=== PATIENT | female | born 1955 | race Caucasian/White ===

== ENCOUNTER 2022-01-27 13:47 | Inpatient (IN) | payer MEDICARE, SELFPAY ==
[2022-01-27 14:17] LABS: #Lymphocytes 1.6 thou/uL (1.20-3.40); #Monocytes 0.6 thou/uL (0.11-0.59); #Neutrophils 3.2 thou/uL (1.40-6.50); %Basophils 0.5 % (0.0-1.0); %Eosinophils 0.1 % (0.0-10.0); %Lymphocytes 29.2 % (21.0-51.0); %Monocytes 10.6 % (0.0-10.0); %Neutrophils 59.6 % (42.0-75.0); Hemoglobin 16.9 g/dL (12.0-16.0); Mean Corpuscular HGB CONC 31.3 g/dL (32.0-36.0); Mean Corpuscular Hemoglobin 30.2 pg (27.0-31.0); Mean Corpuscular Volume 96.4 fl (78.0-98.0); Mean Platelet Volume 9.1 fL (7.4-10.4); Platelet Count 129 10x3/uL (130-400); RBC Distribution Width 13.8 % (11.5-14.5); Red Blood Cell (RBC) Count 5.61 mill/uL (4.20-5.40); White Blood Cell (WBC) Count 5.4 10x3/uL (4.8-10.8)
[2022-01-27 14:27] LABS: INR-International Normal Ratio 1.1; PTT 31.8 sec (22.9-36.1)
[2022-01-27 14:41] LABS: ALT (SGPT) 87 U/L (8-55); AST (SGOT) 167 U/L (5-34); Albumin 3.4 g/dL (3.4-4.8); Alkaline Phosphatase 120 U/L (40-110); Anion Gap 20 mmol/L (10-20); BUN (Urea Nitrogen) 54 mg/dL (9.8-20.1); Bilirubin, Total 1.9 mg/dL (0.2-1.2); Calc. Creatinine Clearance 0 mL/min (70-130); Calcium 8.7 mg/dL (7.8-10.44); Carbon Dioxide 19 mmol/L (23-31); Chloride 98 mmol/L (98-107); Estimated GFR 31; Globulin 3.4 g/dL (2.4-3.5); Glucose 148 mg/dL (80-115); Protein, Total 6.8 g/dL (5.8-8.1); Sodium 132 mmol/L (136-145)
[2022-01-27] MEDS ORDERED: Metoprolol Tartrate 5 MG/5 ML VIAL ONE (15:48)
[2022-01-27] MEDS ORDERED: Metoprolol Tartrate 5 MG/5 ML VIAL IVP SCH (18:10)
[2022-01-27] MEDS ORDERED: Furosemide 20 MG/2 ML VIAL SLOW IVP SCH (18:15)
[2022-01-27] MEDS ORDERED: Acetaminophen 325 MG TAB PO PRN (18:23)
[2022-01-27] MEDS ORDERED: Ondansetron PF 4 MG/2 ML Vial IVP PRN (19:15)
[2022-01-27] MEDS ORDERED: Sodium Chloride 0.9% 1,000 ML IV SCH (19:15)
[2022-01-27] MEDS ORDERED: Ondansetron ODT 4 MG TAB SL PRN (19:15)
[2022-01-27] MEDS: Heparin 5,000 UNITS/ML VIAL SC SCH (21:33)
[2022-01-28] MEDS ORDERED: Metoprolol Tartrate 5 MG/5 ML VIAL IVP SCH (03:59)
[2022-01-28 05:24] LABS: Anion Gap 17 mmol/L (10-20); BUN (Urea Nitrogen) 57 mg/dL (9.8-20.1); Calc. Creatinine Clearance 45 mL/min (70-130); Calcium 8.4 mg/dL (7.8-10.44); Carbon Dioxide 19 mmol/L (23-31); Chloride 100 mmol/L (98-107); Estimated GFR 28; Glucose 133 mg/dL (80-115); Potassium 5.2 mmol/L (3.5-5.1); Sodium 131 mmol/L (136-145)
[2022-01-28 05:54] LABS: Band 3 % (5-11); Hemoglobin 15.6 g/dL (12.0-16.0); Lymphocytes 15 % (21-51); MDiff Complete? YES; Mean Corpuscular HGB CONC 30.2 g/dL (32.0-36.0); Mean Corpuscular Hemoglobin 28.7 pg (27.0-31.0); Mean Corpuscular Volume 95.2 fl (78.0-98.0); Mean Platelet Volume 9.7 fL (7.4-10.4); Monocytes 12 % (0-10); Neutrophil 70 % (42-75); Platelet Count 118 10x3/uL (130-400); Platelet Morphology Comment Appears Decreased; RBC Distribution Width 13.9 % (11.5-14.5); RBC Morphology Normal; Red Blood Cell (RBC) Count 5.44 mill/uL (4.20-5.40); White Blood Cell (WBC) Count 6.3 10x3/uL (4.8-10.8)
[2022-01-28] MEDS: Furosemide 20 MG/2 ML VIAL SLOW IVP SCH ×2 (06:08→13:41)
[2022-01-28] MEDS: Heparin 5,000 UNITS/ML VIAL SC SCH (09:42)
[2022-01-28] MEDS: Aspirin Chewable 81 MG TAB PO SCH (09:42)
[2022-01-28] MEDS ORDERED: Diltiazem 125 MG, Admixture Fee 1 EACH in Sodium Chloride 0.9% 100 ML IVPB SCH (11:45)
[2022-01-28] MEDS ORDERED: DOBUTamine 500 mg/250 ml 250 ML IVPB SCH (12:15)
[2022-01-28] MEDS: Amiodarone 450 MG in Dextrose 5% in Water 250 ML IVPB SCH ×2 (12:52→22:38)
[2022-01-28] MEDS ORDERED: Enoxaparin Sodium 100 MG/ML SYRINGE SC SCH (13:00)
[2022-01-28 13:20] LABS: ALT (SGPT) 140 U/L (8-55); AST (SGOT) 334 U/L (5-34); Albumin 3.1 g/dL (3.4-4.8); Alkaline Phosphatase 138 U/L (40-110); Bilirubin, Direct 1.3 mg/dL (0.1-0.3); Protein, Total 6.1 g/dL (5.8-8.1)
[2022-01-29 05:06] LABS: Hemoglobin 15.7 g/dL (12.0-16.0); Mean Corpuscular HGB CONC 31.1 g/dL (32.0-36.0); Mean Corpuscular Hemoglobin 29.2 pg (27.0-31.0); Mean Corpuscular Volume 94.2 fl (78.0-98.0); Mean Platelet Volume 10.3 fL (7.4-10.4); Platelet Count 102 10x3/uL (130-400); Red Blood Cell (RBC) Count 5.38 mill/uL (4.20-5.40); White Blood Cell (WBC) Count 6.6 10x3/uL (4.8-10.8)
[2022-01-29 05:07] LABS: #Lymphocytes 1.4 thou/uL (1.20-3.40); #Monocytes 0.5 thou/uL (0.11-0.59); #Neutrophils 5.1 thou/uL (1.40-6.50); %Lymphocytes 20.5 % (21.0-51.0); %Monocytes 7.3 % (0.0-10.0); %Neutrophils 72.1 % (42.0-75.0)
[2022-01-29 05:22] LABS: ALT (SGPT) 240 U/L (8-55); AST (SGOT) 583 U/L (5-34); Albumin 2.8 g/dL (3.4-4.8); Alkaline Phosphatase 128 U/L (40-110); Anion Gap 18 mmol/L (10-20); BUN (Urea Nitrogen) 64 mg/dL (9.8-20.1); Bilirubin, Total 1.7 mg/dL (0.2-1.2); Calc. Creatinine Clearance 39 mL/min (70-130); Calcium 8.1 mg/dL (7.8-10.44); Carbon Dioxide 18 mmol/L (23-31); Chloride 100 mmol/L (98-107); Estimated GFR 24; Globulin 2.8 g/dL (2.4-3.5); Glucose 182 mg/dL (80-115); Potassium 5.2 mmol/L (3.5-5.1); Protein, Total 5.6 g/dL (5.8-8.1); Sodium 131 mmol/L (136-145)
[2022-01-29] MEDS: Furosemide 20 MG/2 ML VIAL SLOW IVP SCH ×2 (06:21→14:54)
[2022-01-29] MEDS: Aspirin Chewable 81 MG TAB PO SCH (10:22)
[2022-01-29] MEDS: Enoxaparin Sodium 100 MG/ML SYRINGE SC SCH (10:36)
[2022-01-29 12:18] LABS: Free T4 (Free Thyroxine) 1.19 ng/dL (0.70-1.48)
[2022-01-29] MEDS: Amiodarone 450 MG in Dextrose 5% in Water 250 ML IVPB SCH (13:30)
[2022-01-29] MEDS ORDERED: predniSONE 50 MG TAB ONE (18:12)
[2022-01-30] MEDS: DOBUTamine 500 mg/250 ml 250 ML IVPB SCH ×2 (00:35→18:08)
[2022-01-30] MEDS: Amiodarone 450 MG in Dextrose 5% in Water 250 ML IVPB SCH ×2 (04:51→17:44)
[2022-01-30 05:01] LABS: #Lymphocytes 0.7 thou/uL (1.20-3.40); #Monocytes 0.3 thou/uL (0.11-0.59); #Neutrophils 8.1 thou/uL (1.40-6.50); %Basophils 0.2 % (0.0-1.0); %Eosinophils 0.1 % (0.0-10.0); %Monocytes 2.9 % (0.0-10.0); %Neutrophils 88.9 % (42.0-75.0); Hemoglobin 16.3 g/dL (12.0-16.0); Mean Corpuscular HGB CONC 30.7 g/dL (32.0-36.0); Mean Corpuscular Hemoglobin 29.3 pg (27.0-31.0); Mean Corpuscular Volume 95.3 fl (78.0-98.0); Mean Platelet Volume 10.2 fL (7.4-10.4); Platelet Count 112 10x3/uL (130-400); RBC Distribution Width 14.3 % (11.5-14.5); Red Blood Cell (RBC) Count 5.58 mill/uL (4.20-5.40); White Blood Cell (WBC) Count 9.1 10x3/uL (4.8-10.8)
[2022-01-30 05:32] LABS: ALT (SGPT) 265 U/L (8-55); AST (SGOT) 456 U/L (5-34); Alkaline Phosphatase 145 U/L (40-110); Anion Gap 18 mmol/L (10-20); BUN (Urea Nitrogen) 70 mg/dL (9.8-20.1); Bilirubin, Total 1.9 mg/dL (0.2-1.2); Calc. Creatinine Clearance 39 mL/min (70-130); Calcium 8.3 mg/dL (7.8-10.44); Carbon Dioxide 17 mmol/L (23-31); Chloride 98 mmol/L (98-107); Estimated GFR 24; Globulin 3.2 g/dL (2.4-3.5); Glucose 265 mg/dL (80-115); Magnesium 2.2 mg/dL (1.6-2.6); Phosphorus 5.1 mg/dL (2.3-4.7); Potassium 5.3 mmol/L (3.5-5.1); Protein, Total 6.2 g/dL (5.8-8.1); Sodium 128 mmol/L (136-145)
[2022-01-30] MEDS: Furosemide 20 MG/2 ML VIAL SLOW IVP SCH ×2 (05:41→14:42)
[2022-01-30] MEDS ORDERED: Empagliflozin 10 MG TAB PO SCH (09:00)
[2022-01-30] MEDS ORDERED: FLU VACC QS2022-23(65YR UP)/PF 240 MCG/0.7 ML SYRINGE IM ONE (09:00)
[2022-01-30] MEDS: Aspirin Chewable 81 MG TAB PO SCH (10:00)
[2022-01-30] MEDS: Enoxaparin Sodium 100 MG/ML SYRINGE SC SCH (10:00)
[2022-01-30] MEDS: Doxycycline 100 MG in Sodium Chloride 0.9% 100 ML IVPB SCH ×2 (10:10→22:00)
[2022-01-30 14:37] LABS: HBCM Index 0.05 S/CO (0-0.79); HBSAg Index 0.31 S/CO (0-0.99); Hep A IgM AB Non-Reactive (NonReactive); Hep A IgM S/CO 0.11 S/CO (0-0.79); Hep B Surf Ag Non-Reactive S/CO (NonReactive); Hep C IgG Ab Non-Reactive (NonReactive); Hep C Index 0.21 S/CO (0-0.79); Hepatitis B Core IgM Abs Non-Reactive (NonReactive)
[2022-01-30] MEDS ORDERED: Doxycycline 100 MG in Syringe 0 ML IVPB SCH (21:00)
[2022-01-31] MEDS: Furosemide 20 MG/2 ML VIAL SLOW IVP SCH ×2 (05:57→14:49)
[2022-01-31 07:50] LABS: ALT (SGPT) 219 U/L (8-55); AST (SGOT) 246 U/L (5-34); Alkaline Phosphatase 124 U/L (40-110); Anion Gap 16 mmol/L (10-20); BUN (Urea Nitrogen) 72 mg/dL (9.8-20.1); Calc. Creatinine Clearance 44 mL/min (70-130); Calcium 8.5 mg/dL (7.8-10.44); Carbon Dioxide 20 mmol/L (23-31); Chloride 99 mmol/L (98-107); Estimated GFR 27; Globulin 3.2 g/dL (2.4-3.5); Glucose 307 mg/dL (80-115); Potassium 4.9 mmol/L (3.5-5.1); Protein, Total 6.2 g/dL (5.8-8.1); Sodium 130 mmol/L (136-145)
[2022-01-31 08:05] LABS: #Monocytes 0.8 thou/uL (0.11-0.59); #Neutrophils 8.9 thou/uL (1.40-6.50); %Basophils 0.2 % (0.0-1.0); %Eosinophils 0.1 % (0.0-10.0); %Lymphocytes 9.1 % (21.0-51.0); %Monocytes 7.5 % (0.0-10.0); %Neutrophils 83.2 % (42.0-75.0); Hemoglobin 16.1 g/dL (12.0-16.0); Mean Corpuscular HGB CONC 30.3 g/dL (32.0-36.0); Mean Corpuscular Hemoglobin 29.2 pg (27.0-31.0); Mean Corpuscular Volume 96.2 fl (78.0-98.0); Mean Platelet Volume 9.9 fL (7.4-10.4); Platelet Count 121 10x3/uL (130-400); RBC Distribution Width 14.3 % (11.5-14.5); Red Blood Cell (RBC) Count 5.51 mill/uL (4.20-5.40); White Blood Cell (WBC) Count 10.7 10x3/uL (4.8-10.8)
[2022-01-31] MEDS: Aspirin Chewable 81 MG TAB PO SCH (10:18)
[2022-01-31] MEDS: Doxycycline 100 MG in Sodium Chloride 0.9% 100 ML IVPB SCH ×2 (10:18→22:04)
[2022-01-31] MEDS: Enoxaparin Sodium 100 MG/ML SYRINGE SC SCH (10:18)
[2022-02-01 04:43] LABS: #Lymphocytes 1.2 thou/uL (1.20-3.40); #Monocytes 0.7 thou/uL (0.11-0.59); #Neutrophils 7.3 thou/uL (1.40-6.50); %Basophils 0.1 % (0.0-1.0); %Eosinophils 0.1 % (0.0-10.0); %Lymphocytes 13.1 % (21.0-51.0); %Monocytes 7.9 % (0.0-10.0); %Neutrophils 78.9 % (42.0-75.0); Hemoglobin 15.3 g/dL (12.0-16.0); Mean Corpuscular HGB CONC 30.7 g/dL (32.0-36.0); Mean Corpuscular Hemoglobin 28.9 pg (27.0-31.0); Mean Corpuscular Volume 94.1 fl (78.0-98.0); Mean Platelet Volume 10.2 fL (7.4-10.4); Platelet Count 116 10x3/uL (130-400); RBC Distribution Width 14.3 % (11.5-14.5); Red Blood Cell (RBC) Count 5.29 mill/uL (4.20-5.40); White Blood Cell (WBC) Count 9.3 10x3/uL (4.8-10.8)
[2022-02-01 05:08] LABS: ALT (SGPT) 185 U/L (8-55); AST (SGOT) 150 U/L (5-34); Albumin 3.1 g/dL (3.4-4.8); Alkaline Phosphatase 121 U/L (40-110); Anion Gap 15 mmol/L (10-20); BUN (Urea Nitrogen) 66 mg/dL (9.8-20.1); Calc. Creatinine Clearance 47 mL/min (70-130); Calcium 8.6 mg/dL (7.8-10.44); Carbon Dioxide 23 mmol/L (23-31); Chloride 99 mmol/L (98-107); Estimated GFR 29; Globulin 3.2 g/dL (2.4-3.5); Glucose 269 mg/dL (80-115); Magnesium 2.2 mg/dL (1.6-2.6); Phosphorus 3.7 mg/dL (2.3-4.7); Potassium 4.7 mmol/L (3.5-5.1); Protein, Total 6.3 g/dL (5.8-8.1); Sodium 132 mmol/L (136-145)
[2022-02-01] MEDS: Furosemide 20 MG/2 ML VIAL SLOW IVP SCH ×2 (05:51→15:02)
[2022-02-01] MEDS: DOBUTamine 500 mg/250 ml 250 ML IVPB SCH ×2 (05:51→20:53)
[2022-02-01] MEDS: Amiodarone 450 MG in Dextrose 5% in Water 250 ML IVPB SCH ×2 (05:51→20:06)
[2022-02-01] MEDS: Doxycycline 100 MG in Sodium Chloride 0.9% 100 ML IVPB SCH ×2 (09:41→20:40)
[2022-02-01] MEDS: Enoxaparin Sodium 100 MG/ML SYRINGE SC SCH (09:41)
[2022-02-01] MEDS: Aspirin Chewable 81 MG TAB PO SCH (09:41)
[2022-02-01 14:18] LABS: Bacteria/HPF 4+ HPF (None Seen); Bilirubin Negative (Negative); Blood, Urine 1+ (Negative); CAUTI Indications for Culture Dysuria,urgency,freq; Clarity Turbid (Clear); Glucose, Urine (Dipstick) Normal (Negative); Ketone, Urine Negative (Negative); Leukocyte 250 Leu/uL (Negative); Nitrite Negative (Negative); Protein, Urine (Dipstick) 20 mg/dL (Neg-Trace); Specific Gravity, Urine 1.016 (1.002-1.036); Squamous Epithelial 0-3 HPF (0-3)
[2022-02-01 14:22] LABS: Urine Culture Reflex Yes Yes
[2022-02-01] MEDS: cefTRIAXone\\ROCEPHIN 1 GM in Sodium Chloride 0.9% 100 ML IVPB SCH (16:02)
[2022-02-02 04:54] LABS: #Lymphocytes 1.2 thou/uL (1.20-3.40); #Monocytes 0.9 thou/uL (0.11-0.59); %Basophils 0.1 % (0.0-1.0); %Lymphocytes 12.8 % (21.0-51.0); %Monocytes 9.8 % (0.0-10.0); %Neutrophils 77.3 % (42.0-75.0); Hemoglobin 16.3 g/dL (12.0-16.0); Mean Corpuscular HGB CONC 31.8 g/dL (32.0-36.0); Mean Corpuscular Hemoglobin 30.2 pg (27.0-31.0); Mean Corpuscular Volume 94.9 fl (78.0-98.0); Mean Platelet Volume 10.3 fL (7.4-10.4); Platelet Count 112 10x3/uL (130-400); RBC Distribution Width 14.2 % (11.5-14.5)
[2022-02-02 05:00] LABS: ALT (SGPT) 143 U/L (8-55); AST (SGOT) 85 U/L (5-34); Albumin 2.9 g/dL (3.4-4.8); Alkaline Phosphatase 115 U/L (40-110); Anion Gap 19 mmol/L (10-20); BUN (Urea Nitrogen) 64 mg/dL (9.8-20.1); Calc. Creatinine Clearance 58 mL/min (70-130); Calcium 8.6 mg/dL (7.8-10.44); Carbon Dioxide 16 mmol/L (23-31); Chloride 102 mmol/L (98-107); Estimated GFR 38; Globulin 3.6 g/dL (2.4-3.5); Glucose 255 mg/dL (80-115); Potassium 4.9 mmol/L (3.5-5.1); Protein, Total 6.5 g/dL (5.8-8.1); Sodium 132 mmol/L (136-145)
[2022-02-02] MEDS: Furosemide 20 MG/2 ML VIAL SLOW IVP SCH ×2 (05:29→14:29)
[2022-02-02] MEDS: Aspirin Chewable 81 MG TAB PO SCH (08:22)
[2022-02-02] MEDS: Enoxaparin Sodium 100 MG/ML SYRINGE SC SCH (08:22)
[2022-02-02] MEDS: cefTRIAXone\\ROCEPHIN 1 GM in Sodium Chloride 0.9% 100 ML IVPB SCH (08:56)
[2022-02-02] MEDS: Doxycycline 100 MG in Sodium Chloride 0.9% 100 ML IVPB SCH (09:34)
[2022-02-02] MEDS: Amiodarone 450 MG in Dextrose 5% in Water 250 ML IVPB SCH (11:27)
[2022-02-02] MEDS: DOBUTamine 500 mg/250 ml 250 ML IVPB SCH ×2 (11:28→20:00)
[2022-02-02] MEDS: Propofol 1,000 MG/100 ML VIAL IV PRN (19:30)
[2022-02-02 19:47] LABS: Actual Bicarbonate (HCO3a) 14.5 mEq/L (22-28); Base Excess (BEa) -13.4 mEq/L (-2.0 to +3.0); CO2 Tension 40.6 mmHg (35.0-45.0); Calcium, Ionized (arterial) 1.17 mmol/L (1.12-1.30); Carboxyhemoglobin (COHb) 0.8 gm% (0.0-3.0); Hemoglobin (Hb) 17.2 g/dL (12.0-16.0); O2 Tension (PaO2), arterial 56.4 mmHg (> 80.0); Potassium - ABG Lab 5.15 mmol/L (3.70-5.30); pH, Arterial 7.17 (7.35-7.45)
[2022-02-02 19:48] LABS: Puncture Site RBR
[2022-02-02] MEDS ORDERED: Midazolam HCl 2 mg/2 ml Vial ONE (19:55)
[2022-02-02] MEDS ORDERED: NOREPINEPHRINE 8 MG/250 ML-D5W 250 ML ONE (20:06)
[2022-02-02] MEDS ORDERED: NOREPINEPHRINE 8 MG/250 ML-D5W 250 ML IVPB PRN (20:11)
[2022-02-02] MEDS ORDERED: Piperacillin/Tazobactam 3.375 GM in Sodium Chloride 0.9% 100 ML IVPB SCH ×2 (20:15→23:59)
[2022-02-02] MEDS ORDERED: Ventilator Sedation Protocol 1 EACH FS SCH (20:15)
[2022-02-02] MEDS ORDERED: Sodium Bicarb 50 MEQ/50 ML VIAL IVP SCH (20:15)
[2022-02-02 20:27] LABS: Mean Corpuscular HGB CONC 29.9 g/dL (32.0-36.0); Mean Corpuscular Hemoglobin 28.9 pg (27.0-31.0); Mean Corpuscular Volume 96.7 fl (78.0-98.0); Mean Platelet Volume 10.6 fL (7.4-10.4); Platelet Count 106 10x3/uL (130-400); RBC Distribution Width 14.6 % (11.5-14.5); Red Blood Cell (RBC) Count 5.54 mill/uL (4.20-5.40)
[2022-02-02] MEDS ORDERED: Midazolam HCl 2 mg/2 ml Vial SLOW IVP PRN (20:29)
[2022-02-02] MEDS ORDERED: Morphine 4 MG/ML VIAL SLOW IVP PRN (20:30)
[2022-02-02] MEDS ORDERED: Fentanyl CADD 100 ML IV SCH (20:30)
[2022-02-02] MEDS ORDERED: Fentanyl BOLUS 250 ML IVPB PRN (20:30)
[2022-02-02] MEDS ORDERED: DISCONTINUE PREVIOUS NARCOTIC PAIN MEDICATIONS AND BENZODIAZEPINES FS SCH (20:30)
[2022-02-02] MEDS ORDERED: Propofol BOLUS 1,000 MG/100 ML VIAL IV PRN (20:30)
[2022-02-02 20:41] LABS: INR-International Normal Ratio 1.5; PTT 39.9 sec (22.9-36.1); Prothrombin Time 18.9 sec (12.0-14.7)
[2022-02-02 20:41] LABS: Anion Gap 21 mmol/L (10-20); BUN (Urea Nitrogen) 57 mg/dL (9.8-20.1); Calc. Creatinine Clearance 55 mL/min (70-130); Carbon Dioxide 17 mmol/L (23-31); Chloride 102 mmol/L (98-107); Potassium 5.2 mmol/L (3.5-5.1); Sodium 135 mmol/L (136-145)
[2022-02-02 20:42] LABS: ALT (SGPT) 119 U/L (8-55); AST (SGOT) 111 U/L (5-34); Albumin 2.4 g/dL (3.4-4.8); Alkaline Phosphatase 110 U/L (40-110); Bilirubin, Total 1.8 mg/dL (0.2-1.2); Calcium 7.9 mg/dL (7.8-10.44); Estimated GFR 35; Globulin 3.2 g/dL (2.4-3.5); Glucose 296 mg/dL (80-115); Magnesium 2.2 mg/dL (1.6-2.6); Protein, Total 5.6 g/dL (5.8-8.1)
[2022-02-02 20:43] LABS: Lactic Acid 8.2 mmol/L (0.5-2.2)
[2022-02-02 20:44] LABS: Troponin I 0.028 ng/mL (< 0.028)
[2022-02-02] MEDS ORDERED: Digoxin 0.5 MG/2 ML AMP SLOW IVP SCH (20:45)
[2022-02-02 20:56] LABS: Band 4 % (5-11); Lymphocytes 19 % (21-51); MDiff Complete? YES; Monocytes 1 % (0-10); Neutrophil 76 % (42-75); Nucleated RBC 7 % (0); Platelet Morphology Comment Appears Decreased; White Blood Cell (WBC) Count 9.7 10x3/uL (4.8-10.8)
[2022-02-02] MEDS ORDERED: Enoxaparin Sodium 100 MG/ML SYRINGE SC SCH (21:00)
[2022-02-02 23:17] LABS: Lactic Acid 6.3 mmol/L (0.5-2.2)
[2022-02-03] MEDS: Propofol 1,000 MG/100 ML VIAL IV PRN ×2 (02:33→13:10)
[2022-02-03] MEDS: Piperacillin/Tazobactam 3.375 GM in Sodium Chloride 0.9% 100 ML IVPB SCH ×3 (02:33→17:24)
[2022-02-03 03:58] LABS: Band 8 % (5-11); Lymphocytes 4 % (21-51); MDiff Complete? YES; Mean Corpuscular HGB CONC 30.6 g/dL (32.0-36.0); Mean Corpuscular Hemoglobin 28.8 pg (27.0-31.0); Mean Platelet Volume 10.3 fL (7.4-10.4); Monocytes 3 % (0-10); Neutrophil 85 % (42-75); Nucleated RBC 2 % (0); Platelet Count 104 10x3/uL (130-400); Platelet Morphology Comment Appears Decreased; RBC Distribution Width 14.4 % (11.5-14.5); White Blood Cell (WBC) Count 13.4 10x3/uL (4.8-10.8)
[2022-02-03 04:03] LABS: ALT (SGPT) 102 U/L (8-55); AST (SGOT) 90 U/L (5-34); Albumin 2.2 g/dL (3.4-4.8); Alkaline Phosphatase 98 U/L (40-110); Anion Gap 16 mmol/L (10-20); BUN (Urea Nitrogen) 62 mg/dL (9.8-20.1); Bilirubin, Total 2.7 mg/dL (0.2-1.2); Calc. Creatinine Clearance 52 mL/min (70-130); Calcium 7.9 mg/dL (7.8-10.44); Carbon Dioxide 21 mmol/L (23-31); Chloride 101 mmol/L (98-107); Estimated GFR 33; Globulin 2.8 g/dL (2.4-3.5); Glucose 280 mg/dL (80-115); Magnesium 1.9 mg/dL (1.6-2.6); Phosphorus 3.2 mg/dL (2.3-4.7); Potassium 4.4 mmol/L (3.5-5.1); Sodium 134 mmol/L (136-145)
[2022-02-03 04:50] LABS: Lactic Acid 3.4 mmol/L (0.5-2.2)
[2022-02-03] MEDS ORDERED: HumaLOG 300 UNITS/3 ML VIAL SC PRN (05:55)
[2022-02-03] MEDS ORDERED: Dextrose 50% Abboject 50 ML SYRINGE SLOW IVP PRN (05:55)
[2022-02-03] MEDS ORDERED: Dextrose 5% in Water 1,000 ML IV PRN (05:55)
[2022-02-03 06:20] LABS: Hemoglobin A1c 7.7 % (4.0-6.0)
[2022-02-03] MEDS: Furosemide 20 MG/2 ML VIAL SLOW IVP SCH ×2 (06:24→14:24)
[2022-02-03] MEDS: HumaLOG 300 UNITS/3 ML VIAL SC PRN ×3 (06:25→17:17)
[2022-02-03 07:48] LABS: Actual Bicarbonate (HCO3a) 20.3 mEq/L (22-28); Base Excess (BEa) 0.8 mEq/L (-2.0 to +3.0); Carboxyhemoglobin (COHb) 0.7 gm% (0.0-3.0); Hemoglobin (Hb) 15.9 g/dL (12.0-16.0); O2 Tension (PaO2), arterial 157.3 mmHg (> 80.0); Potassium - ABG Lab 3.97 mmol/L (3.70-5.30); pH, Arterial 7.58 (7.35-7.45)
[2022-02-03 07:50] LABS: Puncture Site RRA
[2022-02-03 08:43] LABS: Anion Gap 14 mmol/L (10-20); BUN (Urea Nitrogen) 60 mg/dL (9.8-20.1); Calc. Creatinine Clearance 53 mL/min (70-130); Calcium 7.9 mg/dL (7.8-10.44); Carbon Dioxide 23 mmol/L (23-31); Chloride 101 mmol/L (98-107); Estimated GFR 33; Glucose 262 mg/dL (80-115); Potassium 4.1 mmol/L (3.5-5.1); Sodium 134 mmol/L (136-145)
[2022-02-03 09:02] LABS: HIV (1/2) Antibody/Antigen Non-Reactive (NonReactive); HIV 1/2 INDEX 0.16 S/CO (<1.00)
[2022-02-03] MEDS: Pantoprazole 40 MG VIAL IVP SCH (09:14)
[2022-02-03] MEDS: Aspirin Chewable 81 MG TAB PO SCH (09:14)
[2022-02-03] MEDS: NPH, Human Insulin Isophane 300 UNIT/3 ML VIAL SC SCH ×2 (09:26→22:35)
[2022-02-03 11:14] VITALS: BMI 35.2
[2022-02-03 13:09] LABS: Syphilis Antibody Nonreactive (Nonreactive); Syphilis Antibody Index 0.06 S/CO (<1.00 Non-Reactive)
[2022-02-03] MEDS: DOBUTamine 500 mg/250 ml 250 ML IVPB SCH (13:10)
[2022-02-03] MEDS ORDERED: EPINEPHrine 1 MG/10 ML Abboject SYRINGE ONE (19:10)
[2022-02-03] MEDS ORDERED: NPH, Human Insulin Isophane 300 UNIT/3 ML VIAL SC SCH (22:15)
[2022-02-04] MEDS: Amiodarone 450 MG in Dextrose 5% in Water 250 ML IVPB SCH ×2 (01:14→18:28)
[2022-02-04] MEDS: Propofol 1,000 MG/100 ML VIAL IV PRN ×3 (01:14→18:20)
[2022-02-04] MEDS: Piperacillin/Tazobactam 3.375 GM in Sodium Chloride 0.9% 100 ML IVPB SCH ×3 (02:25→18:19)
[2022-02-04 04:54] LABS: #Lymphocytes 1.1 thou/uL (1.20-3.40); #Monocytes 0.6 thou/uL (0.11-0.59); #Neutrophils 8.3 thou/uL (1.40-6.50); %Basophils 0.2 % (0.0-1.0); %Eosinophils 0.3 % (0.0-10.0); %Lymphocytes 11.1 % (21.0-51.0); %Monocytes 5.7 % (0.0-10.0); %Neutrophils 82.7 % (42.0-75.0); Hemoglobin 14.1 g/dL (12.0-16.0); Mean Corpuscular HGB CONC 30.6 g/dL (32.0-36.0); Mean Corpuscular Hemoglobin 28.9 pg (27.0-31.0); Mean Corpuscular Volume 94.3 fl (78.0-98.0); Mean Platelet Volume 10.4 fL (7.4-10.4); Platelet Count 100 10x3/uL (130-400); RBC Distribution Width 14.1 % (11.5-14.5); Red Blood Cell (RBC) Count 4.87 mill/uL (4.20-5.40)
[2022-02-04 05:11] LABS: Anion Gap 13 mmol/L (10-20); BUN (Urea Nitrogen) 57 mg/dL (9.8-20.1); Calc. Creatinine Clearance 60 mL/min (70-130); Calcium 7.8 mg/dL (7.8-10.44); Carbon Dioxide 26 mmol/L (23-31); Chloride 101 mmol/L (98-107); Estimated GFR 39; Glucose 126 mg/dL (80-115); Potassium 3.7 mmol/L (3.5-5.1); Sodium 136 mmol/L (136-145)
[2022-02-04] MEDS: Furosemide 20 MG/2 ML VIAL SLOW IVP SCH ×2 (06:11→15:42)
[2022-02-04] MEDS: DOBUTamine 500 mg/250 ml 250 ML IVPB SCH (06:11)
[2022-02-04 07:56] LABS: Actual Bicarbonate (HCO3a) 23.8 mEq/L (22-28); Base Excess (BEa) 0.8 mEq/L (-2.0 to +3.0); CO2 Tension 33.6 mmHg (35.0-45.0); Calcium, Ionized (arterial) 1.12 mmol/L (1.12-1.30); Hemoglobin (Hb) 15.1 g/dL (12.0-16.0); O2 Tension (PaO2), arterial 120.9 mmHg (> 80.0); Potassium - ABG Lab 3.84 mmol/L (3.70-5.30); pH, Arterial 7.47 (7.35-7.45)
[2022-02-04 07:58] LABS: Puncture Site RRA
[2022-02-04] MEDS: Aspirin Chewable 81 MG TAB PO SCH (11:07)
[2022-02-04] MEDS: Metolazone 5 MG TAB PER TUBE SCH (11:07)
[2022-02-04] MEDS: Pantoprazole 40 MG VIAL IVP SCH (11:07)
[2022-02-04] MEDS: NPH, Human Insulin Isophane 300 UNIT/3 ML VIAL SC SCH ×2 (11:52→21:27)
[2022-02-05] MEDS: DOBUTamine 500 mg/250 ml 250 ML IVPB SCH ×2 (00:11→17:32)
[2022-02-05] MEDS: Propofol 1,000 MG/100 ML VIAL IV PRN ×3 (00:11→13:10)
[2022-02-05] MEDS: Piperacillin/Tazobactam 3.375 GM in Sodium Chloride 0.9% 100 ML IVPB SCH ×3 (02:16→17:32)
[2022-02-05 05:24] LABS: #Eosinphils 0.1 thou/uL (0.0-0.7); #Lymphocytes 1.1 thou/uL (1.20-3.40); #Monocytes 0.7 thou/uL (0.11-0.59); #Neutrophils 7.1 thou/uL (1.40-6.50); %Basophils 0.1 % (0.0-1.0); %Eosinophils 0.7 % (0.0-10.0); %Lymphocytes 12.1 % (21.0-51.0); %Monocytes 7.8 % (0.0-10.0); %Neutrophils 79.2 % (42.0-75.0); Hemoglobin 13.5 g/dL (12.0-16.0); Mean Corpuscular HGB CONC 30.8 g/dL (32.0-36.0); Mean Corpuscular Hemoglobin 29.1 pg (27.0-31.0); Mean Corpuscular Volume 94.4 fl (78.0-98.0); Mean Platelet Volume 10.4 fL (7.4-10.4); Platelet Count 92 10x3/uL (130-400); Red Blood Cell (RBC) Count 4.65 mill/uL (4.20-5.40); White Blood Cell (WBC) Count 8.9 10x3/uL (4.8-10.8)
[2022-02-05] MEDS: Furosemide 20 MG/2 ML VIAL SLOW IVP SCH ×2 (05:28→14:25)
[2022-02-05 05:48] LABS: Anion Gap 13 mmol/L (10-20); BUN (Urea Nitrogen) 49 mg/dL (9.8-20.1); Calc. Creatinine Clearance 67 mL/min (70-130); Calcium 7.8 mg/dL (7.8-10.44); Carbon Dioxide 29 mmol/L (23-31); Chloride 100 mmol/L (98-107); Estimated GFR 45; Glucose 95 mg/dL (80-115); Potassium 3.5 mmol/L (3.5-5.1); Sodium 138 mmol/L (136-145)
[2022-02-05 07:14] LABS: Actual Bicarbonate (HCO3a) 26.3 mEq/L (22-28); Base Excess (BEa) 3.2 mEq/L (-2.0 to +3.0); CO2 Tension 35.6 mmHg (35.0-45.0); Carboxyhemoglobin (COHb) 1.3 gm% (0.0-3.0); Hemoglobin (Hb) 15.1 g/dL (12.0-16.0); Potassium - ABG Lab 3.54 mmol/L (3.70-5.30); pH, Arterial 7.49 (7.35-7.45)
[2022-02-05 07:16] LABS: Puncture Site LRA
[2022-02-05] MEDS: Aspirin Chewable 81 MG TAB PO SCH (09:00)
[2022-02-05] MEDS: Metolazone 5 MG TAB PER TUBE SCH (09:00)
[2022-02-05] MEDS: Pantoprazole 40 MG VIAL IVP SCH (09:01)
[2022-02-05] MEDS: NPH, Human Insulin Isophane 300 UNIT/3 ML VIAL SC SCH ×2 (09:01→21:32)
[2022-02-05] MEDS: Amiodarone 450 MG in Dextrose 5% in Water 250 ML IVPB SCH (10:24)
[2022-02-05] MEDS: Insulin NPH Human Isophane 100 UNIT/ML (10 ML VIAL) SC SCH (21:31)
[2022-02-06] MEDS: Propofol 1,000 MG/100 ML VIAL IV PRN ×4 (01:38→16:10)
[2022-02-06] MEDS: Piperacillin/Tazobactam 3.375 GM in Sodium Chloride 0.9% 100 ML IVPB SCH ×3 (01:39→18:01)
[2022-02-06] MEDS: Amiodarone 450 MG in Dextrose 5% in Water 250 ML IVPB SCH ×2 (01:39→18:01)
[2022-02-06] MEDS: Furosemide 20 MG/2 ML VIAL SLOW IVP SCH ×2 (05:17→16:10)
[2022-02-06 06:04] LABS: Anion Gap 10 mmol/L (10-20); BUN (Urea Nitrogen) 40 mg/dL (9.8-20.1); Calc. Creatinine Clearance 75 mL/min (70-130); Calcium 7.9 mg/dL (7.8-10.44); Carbon Dioxide 34 mmol/L (23-31); Chloride 98 mmol/L (98-107); Estimated GFR 54; Glucose 83 mg/dL (80-115); Potassium 3.3 mmol/L (3.5-5.1); Sodium 139 mmol/L (136-145)
[2022-02-06 07:03] LABS: #Eosinphils 0.1 thou/uL (0.0-0.7); #Lymphocytes 0.9 thou/uL (1.20-3.40); #Monocytes 0.7 thou/uL (0.11-0.59); #Neutrophils 7.7 thou/uL (1.40-6.50); %Eosinophils 0.9 % (0.0-10.0); %Monocytes 7.3 % (0.0-10.0); %Neutrophils 81.8 % (42.0-75.0); Hemoglobin 14.5 g/dL (12.0-16.0); Mean Corpuscular HGB CONC 32.6 g/dL (32.0-36.0); Mean Corpuscular Volume 95.2 fl (78.0-98.0); Mean Platelet Volume 9.6 fL (7.4-10.4); Platelet Count 98 10x3/uL (130-400); RBC Distribution Width 13.8 % (11.5-14.5); Red Blood Cell (RBC) Count 4.67 mill/uL (4.20-5.40); White Blood Cell (WBC) Count 9.4 10x3/uL (4.8-10.8)
[2022-02-06 07:33] LABS: Actual Bicarbonate (HCO3a) 30.4 mEq/L (22-28); Base Excess (BEa) 6.1 mEq/L (-2.0 to +3.0); CO2 Tension 42.6 mmHg (35.0-45.0); Carboxyhemoglobin (COHb) 1.4 gm% (0.0-3.0); Hemoglobin (Hb) 15.1 g/dL (12.0-16.0); O2 Tension (PaO2), arterial 126.3 mmHg (> 80.0); pH, Arterial 7.47 (7.35-7.45)
[2022-02-06 07:36] LABS: Puncture Site LRA
[2022-02-06] MEDS ORDERED: Potassium Chloride 20 MEQ TAB PER TUBE SCH (07:45)
[2022-02-06] MEDS ORDERED: Potassium Chloride 20 MEQ in Premix Bag 1 BAG IVPB SCH (08:00)
[2022-02-06] MEDS: Pantoprazole 40 MG VIAL IVP SCH (09:25)
[2022-02-06] MEDS: Aspirin Chewable 81 MG TAB PO SCH (09:28)
[2022-02-06] MEDS: Metolazone 5 MG TAB PER TUBE SCH (09:28)
[2022-02-06] MEDS: DOBUTamine 500 mg/250 ml 250 ML IVPB SCH (09:33)
[2022-02-06] MEDS: Insulin NPH Human Isophane 100 UNIT/ML (10 ML VIAL) SC SCH ×2 (10:07→21:12)
[2022-02-07] MEDS: Propofol 1,000 MG/100 ML VIAL IV PRN ×5 (00:17→18:14)
[2022-02-07] MEDS: Piperacillin/Tazobactam 3.375 GM in Sodium Chloride 0.9% 100 ML IVPB SCH ×3 (02:25→17:29)
[2022-02-07] MEDS: DOBUTamine 500 mg/250 ml 250 ML IVPB SCH ×2 (02:29→17:29)
[2022-02-07 04:56] LABS: #Eosinphils 0.1 thou/uL (0.0-0.7); #Lymphocytes 0.7 thou/uL (1.20-3.40); #Monocytes 0.8 thou/uL (0.11-0.59); #Neutrophils 8.1 thou/uL (1.40-6.50); %Basophils 0.1 % (0.0-1.0); %Eosinophils 1.3 % (0.0-10.0); %Neutrophils 83.6 % (42.0-75.0); Hemoglobin 14.1 g/dL (12.0-16.0); Mean Corpuscular HGB CONC 30.9 g/dL (32.0-36.0); Mean Corpuscular Hemoglobin 29.6 pg (27.0-31.0); Mean Corpuscular Volume 95.8 fl (78.0-98.0); Mean Platelet Volume 9.6 fL (7.4-10.4); Platelet Count 96 10x3/uL (130-400); RBC Distribution Width 14.1 % (11.5-14.5); Red Blood Cell (RBC) Count 4.78 mill/uL (4.20-5.40); White Blood Cell (WBC) Count 9.7 10x3/uL (4.8-10.8)
[2022-02-07] MEDS: Furosemide 20 MG/2 ML VIAL SLOW IVP SCH ×2 (05:06→13:59)
[2022-02-07 05:25] LABS: Anion Gap 11 mmol/L (10-20); BUN (Urea Nitrogen) 30 mg/dL (9.8-20.1); Calc. Creatinine Clearance 86 mL/min (70-130); Calcium 8.3 mg/dL (7.8-10.44); Carbon Dioxide 36 mmol/L (23-31); Chloride 96 mmol/L (98-107); Estimated GFR 66; Glucose 103 mg/dL (80-115); Potassium 3.3 mmol/L (3.5-5.1); Sodium 140 mmol/L (136-145)
[2022-02-07 07:14] LABS: Actual Bicarbonate (HCO3a) 32.9 mEq/L (22-28); Base Excess (BEa) 8.6 mEq/L (-2.0 to +3.0); CO2 Tension 43.5 mmHg (35.0-45.0); Calcium, Ionized (arterial) 1.09 mmol/L (1.12-1.30); Hemoglobin (Hb) 14.9 g/dL (12.0-16.0); O2 Tension (PaO2), arterial 101.4 mmHg (> 80.0); Potassium - ABG Lab 3.26 mmol/L (3.70-5.30)
[2022-02-07 07:35] LABS: Puncture Site RRA
[2022-02-07 07:36] LABS: ALV-art Gradient 129.425 mmHg (0-20)
[2022-02-07] MEDS: Insulin NPH Human Isophane 100 UNIT/ML (10 ML VIAL) SC SCH ×2 (08:28→21:00)
[2022-02-07] MEDS: Aspirin Chewable 81 MG TAB PO SCH (08:28)
[2022-02-07] MEDS: Pantoprazole 40 MG VIAL IVP SCH (08:28)
[2022-02-07] MEDS: Metolazone 5 MG TAB PER TUBE SCH (08:31)
[2022-02-07] MEDS: Amiodarone 450 MG in Dextrose 5% in Water 250 ML IVPB SCH (09:21)
[2022-02-08] MEDS: Propofol 1,000 MG/100 ML VIAL IV PRN ×5 (00:25→23:50)
[2022-02-08] MEDS: Amiodarone 450 MG in Dextrose 5% in Water 250 ML IVPB SCH ×2 (01:41→17:47)
[2022-02-08] MEDS: Piperacillin/Tazobactam 3.375 GM in Sodium Chloride 0.9% 100 ML IVPB SCH ×2 (01:43→09:28)
[2022-02-08 05:14] LABS: #Eosinphils 0.1 thou/uL (0.0-0.7); #Lymphocytes 0.8 thou/uL (1.20-3.40); #Monocytes 0.8 thou/uL (0.11-0.59); #Neutrophils 9.2 thou/uL (1.40-6.50); %Basophils 0.2 % (0.0-1.0); %Eosinophils 0.5 % (0.0-10.0); %Lymphocytes 7.7 % (21.0-51.0); %Monocytes 7.7 % (0.0-10.0); %Neutrophils 83.9 % (42.0-75.0); Hemoglobin 12.9 g/dL (12.0-16.0); Mean Corpuscular HGB CONC 29.9 g/dL (32.0-36.0); Mean Corpuscular Hemoglobin 28.8 pg (27.0-31.0); Mean Corpuscular Volume 96.3 fl (78.0-98.0); Mean Platelet Volume 9.6 fL (7.4-10.4); Platelet Count 106 10x3/uL (130-400); RBC Distribution Width 13.7 % (11.5-14.5); Red Blood Cell (RBC) Count 4.47 mill/uL (4.20-5.40)
[2022-02-08 05:21] LABS: BUN (Urea Nitrogen) 27 mg/dL (9.8-20.1); Calc. Creatinine Clearance 93 mL/min (70-130); Calcium 8.1 mg/dL (7.8-10.44); Estimated GFR 72; Glucose 156 mg/dL (80-115)
[2022-02-08 05:30] LABS: Anion Gap 14 mmol/L (10-20); Carbon Dioxide 36 mmol/L (23-31); Chloride 93 mmol/L (98-107); Potassium 3.2 mmol/L (3.5-5.1); Sodium 140 mmol/L (136-145)
[2022-02-08] MEDS: Furosemide 20 MG/2 ML VIAL SLOW IVP SCH ×2 (05:55→13:51)
[2022-02-08] MEDS ORDERED: Potassium Chloride 20 MEQ TAB PER TUBE PRN (06:11)
[2022-02-08] MEDS ORDERED: Electrolyte Replacement Protocol 1 EACH FS PRN (06:12)
[2022-02-08] MEDS ORDERED: Potassium Bicarbonate/Cit Ac 20 MEQ TAB PER TUBE SCH (06:30)
[2022-02-08 06:51] LABS: Magnesium 1.5 mg/dL (1.6-2.6)
[2022-02-08] MEDS: Potassium Chloride 20 MEQ in Premix Bag 1 BAG IVPB SCH ×2 (06:56→08:18)
[2022-02-08] MEDS ORDERED: Magnesium 2 GM/50 ML(in water) 2 GM in Premix Bag 1 BAG IVPB SCH (07:30)
[2022-02-08 07:45] LABS: Actual Bicarbonate (HCO3a) 40.7 mEq/L (22-28); Base Excess (BEa) 15.8 mEq/L (-2.0 to +3.0); Calcium, Ionized (arterial) 1.03 mmol/L (1.12-1.30); Carboxyhemoglobin (COHb) 1.1 gm% (0.0-3.0); Hemoglobin (Hb) 12.5 g/dL (12.0-16.0); O2 Tension (PaO2), arterial 125.5 mmHg (> 80.0); Potassium - ABG Lab 3.14 mmol/L (3.70-5.30); pH, Arterial 7.53 (7.35-7.45)
[2022-02-08] MEDS: Pantoprazole 40 MG VIAL IVP SCH (08:34)
[2022-02-08] MEDS: Insulin NPH Human Isophane 100 UNIT/ML (10 ML VIAL) SC SCH ×2 (08:34→22:57)
[2022-02-08] MEDS: Metolazone 5 MG TAB PER TUBE SCH (08:34)
[2022-02-08] MEDS: Aspirin Chewable 81 MG TAB PO SCH (08:34)
[2022-02-08 08:59] LABS: Puncture Site LRA
[2022-02-08] MEDS: DOBUTamine 500 mg/250 ml 250 ML IVPB SCH (10:37)
[2022-02-08] MEDS ORDERED: Propofol BOLUS 1,000 MG/100 ML VIAL IV PRN (10:53)
[2022-02-08] MEDS ORDERED: Midazolam HCl 2 mg/2 ml Vial SLOW IVP PRN (10:53)
[2022-02-08] MEDS ORDERED: Morphine 4 MG/ML VIAL SLOW IVP PRN (10:53)
[2022-02-08 13:22] LABS: BUN (Urea Nitrogen) 24 mg/dL (9.8-20.1); Calc. Creatinine Clearance 92 mL/min (70-130); Calcium 8.2 mg/dL (7.8-10.44); Estimated GFR 73; Glucose 166 mg/dL (80-115)
[2022-02-08 13:29] LABS: Anion Gap 13 mmol/L (10-20)
[2022-02-08 13:33] LABS: Carbon Dioxide 35 mmol/L (23-31); Chloride 92 mmol/L (98-107); Potassium 3.9 mmol/L (3.5-5.1); Sodium 137 mmol/L (136-145)
[2022-02-09 04:37] VITALS: TEMP 98.4
[2022-02-09 05:04] LABS: #Eosinphils 0.1 thou/uL (0.0-0.7); #Lymphocytes 1.2 thou/uL (1.20-3.40); #Monocytes 0.8 thou/uL (0.11-0.59); #Neutrophils 8.6 thou/uL (1.40-6.50); %Basophils 0.2 % (0.0-1.0); %Eosinophils 0.7 % (0.0-10.0); %Monocytes 7.7 % (0.0-10.0); %Neutrophils 80.4 % (42.0-75.0); Hemoglobin 12.4 g/dL (12.0-16.0); Mean Corpuscular HGB CONC 29.8 g/dL (32.0-36.0); Mean Corpuscular Hemoglobin 28.8 pg (27.0-31.0); Mean Corpuscular Volume 96.4 fl (78.0-98.0); Mean Platelet Volume 9.6 fL (7.4-10.4); Platelet Count 124 10x3/uL (130-400); RBC Distribution Width 13.8 % (11.5-14.5); Red Blood Cell (RBC) Count 4.33 mill/uL (4.20-5.40); White Blood Cell (WBC) Count 10.7 10x3/uL (4.8-10.8)
[2022-02-09 05:22] LABS: Anion Gap 12 mmol/L (10-20); BUN (Urea Nitrogen) 22 mg/dL (9.8-20.1); Calc. Creatinine Clearance 95 mL/min (70-130); Calcium 8.3 mg/dL (7.8-10.44); Carbon Dioxide 37 mmol/L (23-31); Chloride 91 mmol/L (98-107); Estimated GFR 76; Glucose 171 mg/dL (80-115); Magnesium 1.8 mg/dL (1.6-2.6); Potassium 3.8 mmol/L (3.5-5.1); Sodium 136 mmol/L (136-145)
[2022-02-09] MEDS: Furosemide 20 MG/2 ML VIAL SLOW IVP SCH (06:16)
[2022-02-09] MEDS: Propofol 1,000 MG/100 ML VIAL IV PRN (06:16)
[2022-02-09 07:04] VITALS: BP 140/66
[2022-02-09] MEDS ORDERED: Magnesium 2 GM/50 ML(in water) 2 GM in Premix Bag 1 BAG IVPB SCH (08:00)
[2022-02-09] MEDS: Pantoprazole 40 MG VIAL IVP SCH (09:09)
[2022-02-09] MEDS: Insulin NPH Human Isophane 100 UNIT/ML (10 ML VIAL) SC SCH (09:12)
[2022-02-09] MEDS: Metolazone 5 MG TAB PER TUBE SCH (09:14)
[2022-02-09] MEDS: Aspirin Chewable 81 MG TAB PO SCH (09:14)
[2022-02-09] MEDS: Amiodarone 450 MG in Dextrose 5% in Water 250 ML IVPB SCH (09:18)
== END 2022-02-09 11:41 | disposition hospice, inpatient (51) | DRG 291 ==
LOC: ERS 13:47 → 2NO 16:33 → CCU 02-02 19:23
PROVIDERS: ADMIT Internal Medicine; ATTEND Internal Medicine
PROC: 3E033XZ Introduction of Vasopressor into Peripheral Vein, Percutaneous Approach (ICD-10-PCS; 2022-01-29)
PROC: 5A1955Z Respiratory Ventilation, Greater than 96 Consecutive Hours (ICD-10-PCS; principal; 2022-02-02)
PROC: 0BH18EZ Insertion of Endotracheal Airway into Trachea, Via Natural or Artificial Opening Endoscopic (ICD-10-PCS; 2022-02-02)
PROC: 5A12012 Performance of Cardiac Output, Single, Manual (ICD-10-PCS; 2022-02-02)
DX: I50.23 Acute on chronic systolic (congestive) heart failure (principal); Z66 Do not resuscitate; Z51.5 Encounter for palliative care; Z20.822 Contact with and (suspected) exposure to COVID-19; I46.2 Cardiac arrest due to underlying cardiac condition; J69.0 Pneumonitis due to inhalation of food and vomit; J96.01 Acute respiratory failure with hypoxia; I48.92 Unspecified atrial flutter; R18.8 Other ascites; N39.0 Urinary tract infection, site not specified; N17.9 Acute kidney failure, unspecified; E87.1 Hypo-osmolality and hyponatremia; I42.0 Dilated cardiomyopathy; E46 Unspecified protein-calorie malnutrition; E87.3 Alkalosis; C53.9 Malignant neoplasm of cervix uteri, unspecified; I48.91 Unspecified atrial fibrillation; N93.9 Abnormal uterine and vaginal bleeding, unspecified; E86.0 Dehydration; E80.6 Other disorders of bilirubin metabolism; N18.9 Chronic kidney disease, unspecified; E11.22 Type 2 diabetes mellitus with diabetic chronic kidney disease; L68.0 Hirsutism; K76.89 Other specified diseases of liver; R41.89 Other symptoms and signs involving cognitive functions and awareness; E11.65 Type 2 diabetes mellitus with hyperglycemia; B96.20 Unspecified Escherichia coli [E. coli] as the cause of diseases classified elsewhere; Z28.21 Immunization not carried out because of patient refusal; Z68.31 Body mass index [BMI] 31.0-31.9, adult; Z78.1 Physical restraint status
CPT/HCPCS: 36415; 36416; 36600; 71045; 76705; 76856; 80048; 80053; 80074; 80076; 81001; 82140; 82533; 82550; 82805; 83036; 83605; 83690; 83735; 83880; 84100; 84145; 84425; 84439; 84443; 84481; 84484; 85025; 85610; 85730; 86780; 86850; 86900; 86901; 87040; 87077; 87086; 87186; 87389; 87811; 93005; 93010; 93306; 94002; 94003; 94640; 94760; 96374; 97139; C9113; J0171; J0282; J0696; J1160; J1250; J1644; J1650; J1815; J1940; J2250; J2543; J2704; J3411; J3475; J3480; J3490; J7050; J7070; J7512; J7620; J7999; U0003; U0005

== ENCOUNTER 2022-02-09 12:18 | Inpatient (IN) | payer OTHER ==
[2022-02-09] MEDS ORDERED: Ondansetron PF 4 MG/2 ML Vial IVP PRN (13:00)
[2022-02-09] MEDS ORDERED: Scopolamine 1.5 mg/72 hour Patch TOP PRN (13:00)
[2022-02-09] MEDS ORDERED: Acetaminophen 650 MG Suppository PR PRN (13:00)
[2022-02-09] MEDS ORDERED: Haloperidol Lactate 5 MG/ML VIAL SLOW IVP PRN (13:00)
[2022-02-09] MEDS ORDERED: chlorproMAZINE HCl 50 MG/2 ML AMP IM PRN (13:00)
[2022-02-09] MEDS ORDERED: Glycopyrrolate 0.2 MG/ML 5 ML SYRINGE SLOW IVP PRN (13:04)
[2022-02-09] MEDS: Morphine 4 MG/ML VIAL SLOW IVP SCH ×3 (13:11→14:46)
[2022-02-09] MEDS ORDERED: Midazolam HCl 2 mg/2 ml Vial SLOW IVP SCH (13:15)
[2022-02-09] MEDS: Midazolam HCl 2 mg/2 ml Vial SLOW IVP PRN (14:49)
[2022-02-09 16:36] VITALS: BMI 34.0
[2022-02-09] MEDS ORDERED: Morphine 4 MG/ML VIAL SLOW IVP PRN (20:42)
[2022-02-10] MEDS: Glycopyrrolate 0.2 MG/ML 5 ML SYRINGE SLOW IVP PRN ×2 (04:42→09:55)
[2022-02-10] MEDS: Hyoscyamine Sulfate SL 0.125 mg Tablet SL PRN (15:54)
[2022-02-11] MEDS: Hyoscyamine Sulfate SL 0.125 mg Tablet SL PRN ×2 (01:15→13:39)
[2022-02-11] MEDS: Midazolam HCl 2 mg/2 ml Vial SLOW IVP PRN (04:19)
[2022-02-11 08:32] VITALS: BP 109/74
[2022-02-11 11:31] VITALS: TEMP 100.4
== END 2022-02-11 14:11 | disposition expired | DRG 951 ==
LOC: CCU 12:18 → MSONC 15:27
PROVIDERS: ADMIT Internal Medicine Hospice and Palliative Medicine; ATTEND Internal Medicine Hospice and Palliative Medicine
DX: Z51.5 Encounter for palliative care (principal); I50.22 Chronic systolic (congestive) heart failure; I42.0 Dilated cardiomyopathy; N39.0 Urinary tract infection, site not specified; N17.9 Acute kidney failure, unspecified; Z66 Do not resuscitate; I48.91 Unspecified atrial fibrillation; E11.9 Type 2 diabetes mellitus without complications; I46.9 Cardiac arrest, cause unspecified; R74.01 Elevation of levels of liver transaminase levels
CPT/HCPCS: J2250; J2270